=== PATIENT | male | born 1955 | race Caucasian/White ===

== ENCOUNTER 2019-05-12 08:04 | Emergency (ER) | payer OTHER ==
[~2019-05-12 08:04] MED LIST: LIT300 PO
== END 2019-05-12 09:37 | disposition other institution (70) ==
LOC: ED 08:04
DX: Z02.89 Encounter for other administrative examinations (principal)

== ENCOUNTER 2019-05-12 08:04 | Emergency (ER) | payer OTHER, MEDICAID ==
[~2019-05-12] VITALS: Ht 185.4 cm; Wt 115.7 kg
[2019-05-12 08:11] VITALS: Ht 185.4 cm; Wt 115.7 kg
[2019-05-12 09:37] VITALS: BP 180/110
== END 2019-05-12 09:37 | disposition other institution (70) ==
LOC: ED 08:04
DX: R30.0 Dysuria (principal); R46.89 Other symptoms and signs involving appearance and behavior; R45.851 Suicidal ideations
CPT/HCPCS: J1200; J2060